=== PATIENT | male | born 1985 | race Caucasian/White ===

== ENCOUNTER 2019-05-11 17:59 | Emergency (ER) | payer BC ==
[~2019-05-11] VITALS: Ht 177.8 cm; Wt 106.0 kg
[~2019-05-11 17:59] MED LIST: CIPRO500 MG PO; ZITHROMAX500 MG OR; ZOFRAN ODT4 MG PO
[2019-05-11] MEDS ORDERED: AMOXICILLIN500 M2 PO (18:19)
[2019-05-11] MEDS ORDERED: PENICILLN VK500 M1 PO (18:19)
[2019-05-11 18:25] VITALS: BP 140/93
== END 2019-05-11 18:25 | disposition home or self-care (01) | DRG 159 ==
LOC: ED 17:59
DX: K08.89 Other specified disorders of teeth and supporting structures (principal)